=== PATIENT | male | born 1975 | race African-American/Black ===

== ENCOUNTER 2017-07-25 21:05 | Emergency (ER) | payer SELFPAY ==
[~2017-07-25] VITALS: Ht 177.8 cm; Wt 71.0 kg
[2017-07-26 05:06] VITALS: BP 119/71
== END 2017-07-26 05:10 | disposition home or self-care (01) ==
LOC: ER 22:47
DX: B35.4 Tinea corporis (principal); Z88.0 Allergy status to penicillin
CPT/HCPCS: 99283

== ENCOUNTER 2017-09-05 00:12 | Emergency (ER) | payer SELFPAY ==
[~2017-09-05] VITALS: Ht 175.3 cm; Wt 71.0 kg
[2017-09-05] MEDS ORDERED: PREDNISONE 20MG TABLET PO ONE (02:15)
[2017-09-05] MEDS ORDERED: BACITRACIN ZINC OINT UDPKT TOP ONE (02:30)
[2017-09-05 04:18] VITALS: BP 134/80
== END 2017-09-05 04:22 | disposition home or self-care (01) ==
LOC: ER 00:12
DX: L20.9 Atopic dermatitis, unspecified (principal); F17.200 Nicotine dependence, unspecified, uncomplicated; F12.10 Cannabis abuse, uncomplicated; Z88.0 Allergy status to penicillin
CPT/HCPCS: 99283; J7512

== ENCOUNTER 2017-12-18 00:43 | Emergency (ER) | payer SELFPAY ==
[~2017-12-18] VITALS: Ht 177.8 cm; Wt 71.0 kg
[2017-12-18] MEDS ORDERED: CYCLOBENZAPRINE 10MG TABLET PO ONE (03:30)
[2017-12-18] MEDS ORDERED: KETOROLAC 30MG/ML VIAL IM ONE (03:30)
[2017-12-18 04:31] VITALS: BP 132/82
== END 2017-12-18 04:36 | disposition home or self-care (01) ==
LOC: ER 00:43
DX: M54.2 Cervicalgia (principal); M54.5 Low back pain; F12.10 Cannabis abuse, uncomplicated; F17.200 Nicotine dependence, unspecified, uncomplicated; Z88.1 Allergy status to other antibiotic agents
CPT/HCPCS: 96372; 99283; J1885